=== PATIENT | female | born 1990 | race Two or more races ===

== ENCOUNTER 2016-04-29 17:55 | Observation (INO) | payer MEDICAID ==
[~2016-04-29] VITALS: Ht 152.4 cm; Wt 54.9 kg
[2016-04-29] MEDS ORDERED: LACTATED RINGER'S 1,000 ML IV ONE (18:54)
[2016-04-29] MEDS: TERBUTALINE SULFATE 1 MG/ML 1ML VIAL SC SCH ×2 (19:58→20:32)
== END 2016-04-29 21:10 | disposition home or self-care (01) | DRG 566 ==
LOC: TELE 17:55 → LDRP 18:22
PROVIDERS: ADMIT Obstetrics & Gynecology; ATTEND Obstetrics & Gynecology
DX: O36.8130 Decreased fetal movements, third trimester, not applicable or unspecified (principal); O62.9 Abnormality of forces of labor, unspecified; Z3A.33 33 weeks gestation of pregnancy
CPT/HCPCS: 59025; 76818; 81002; 96372; G0378; J3105; 96365